=== PATIENT | female | born 1965 | race Caucasian/White ===

== ENCOUNTER → 2018-01-01 | Outpatient (CLI) | payer BC ==
--- NOTE | 2018-01-01 17:27 | RAD ---
Thyroid ultrasound HISTORY: Thyroid fullness. Right thyroid: * 4.8 cm x 1.3 cm x 1.1 cm * Homogeneous echotexture * No evidence of nodule Isthmus: * 3 mm Left thyroid: * 4.5 cm x 1.3 cm x 1.4 cm * Homogeneous echotexture * No evidence of nodule. IMPRESSION: Unremarkable exam Electronically signed by: Umberto Shah MD (01/01/2018 5:23 PM) [id number]
== END | disposition home or self-care (01) ==
LOC: US 13:43
PROVIDERS: ATTEND Physician Assistant Medical
DX: E07.89 Other specified disorders of thyroid (principal)
CPT/HCPCS: 76536

== ENCOUNTER → 2019-03-05 | Outpatient (CLI) | payer BC ==
[2019-03-05 09:39] LABS: ALBUMIN 4.1 g/dL (3.4-5.0); ALBUMIN/GLOBULIN RATIO 1.1 (1.0-1.7); CALCIUM 9.3 mg/dL (8.5-10.1); CREATININE 0.9 mg/dL (0.6-1.0); POTASSIUM 4.4 mmol/L (3.5-5.1); TOTAL BILIRUBIN 0.6 mg/dL (0.2-1.0); TOTAL PROTEIN 7.8 g/dL (6.4-8.2)
[2019-03-05 09:42] LABS: BASO # 0.1 x10^3/uL (0.0-0.2); BASO % 1 % (0-3); EOS # 0.1 x10^3/uL (0.0-0.7); EOS % 2 % (0-3); HEMATOCRIT 42.6 % (36.0-47.0); LYMPH # 1.7 x10^3/uL (1.0-4.8); LYMPH % 28 % (24-48); MEAN CORPUSCULAR HEMOGLOBIN 31 pg (25-35); MEAN CORPUSCULAR HGB CONC 33 g/dL (31-37); MEAN CORPUSCULAR VOLUME 93 fL (79-100); MONO # 0.4 x10^3/uL (0.0-1.1); MONO % 7 % (0-9); NEUT # 3.9 x10^3uL (1.8-7.7); NEUT % 62 % (31-73); PLATELET COUNT 216 x10^3/uL (140-400); RED BLOOD COUNT 4.59 x10^6/uL (3.50-5.40); RED CELL DISTRIBUTION WIDTH 14.1 % (11.5-14.5); WHITE BLOOD COUNT 6.2 x10^3/uL (4.0-11.0)
[2019-03-05 09:51] LABS: BACTERIA,URINE 0 /HPF (0-FEW); BILIRUBIN,URINE NEG (NEG); CLARITY,URINE CLEAR; COLOR,URINE YELLOW; GLUCOSE,URINE NEG (NEG); NITRITE,URINE NEG (NEG); RBC,URINE 0 /HPF (0-2); SQUAMOUS EPITHELIAL CELL,UR OCC /LPF; UROBILINOGEN,URINE 0.2 mg/dL (0.2 mg/dL); WBC,URINE 0 /HPF (0-4)
[2019-03-05 17:32] LABS: FREE T4 0.82 ng/dL (0.76-1.46); THYROID STIM HORMONE (TSH) 3.159 uIU/mL (0.358-3.740)
== END | disposition home or self-care (01) ==
LOC: LAB 08:07
PROVIDERS: ATTEND Physician Assistant Medical
DX: R00.2 Palpitations (principal)
CPT/HCPCS: 36415; 80053; 80061; 81001; 84439; 84443; 84481; 85025

== ENCOUNTER → 2021-07-12 | Outpatient (CLI) | payer BC ==
--- NOTE | 2021-07-12 10:33 | RAD ---
EXAM: ULTRASOUND PELVIS INDICATION: Reason: PMB, DUB . Last menstrual period was one year ago. COMPARISON: None available. TECHNIQUE: Transabdominal grayscale sonography was performed. Color and spectral Doppler evaluation w as also performed FINDINGS: Uterus is anteflexed and measures 6.7 x 4.3 x 2.8 cm. No focal myometrial abnormalities are identifie d. The endometrium measures 2 mm in thickness. No fluid within the endometrial or cervical canal. Cer vical visualization is somewhat limited however no gross abnormalities are identified. The right ovar y measures 2.6 x 1.8 x 1.2 cm and the left measures 2.6 x 1.9 x 1.3 cm. Both ovaries demonstrate norm al vascular flow. No adnexal masses are seen. No free or loculated fluid collections are identified IMPRESSION: No sonographically discernible abnormalities of the pelvic organs. Electronically signed by: Can Geller MD (07/12/2021 10:31 AM) [id number]
== END ==
LOC: US 07:54
PROVIDERS: ATTEND Physician Assistant Medical
DX: N93.8 Other specified abnormal uterine and vaginal bleeding (principal); N95.0 Postmenopausal bleeding; Z78.0 Asymptomatic menopausal state
CPT/HCPCS: 76856

== ENCOUNTER → 2021-08-07 | Outpatient (CLI) | payer BC ==
--- NOTE | 2021-08-07 12:34 | RAD ---
PROCEDURE: US BREAST LTD RT, MG DIGITAL BILAT DIAGNOSTIC MAMMO WITH JED HISTORY: The patient is 55 years old and is seen for Reason: RT BREAST LUMP / Spl. Instructions: / H istory: . COMPARISON: February 03, 2019 and November 14, 2017 TECHNIQUE: CC and MLO views of both breasts were obtained. Images were processed by the [employer] computer-aided detection system. Right breast targeted ultrasound DENSITY: The breast parenchyma is heterogeneously dense. This may lower the sensitivity of mammograph y. FINDINGS: Right mammogram: Right medial retroareolar breast mass measures 1.5 x 1.3 cm. Increased calcification compared to prior. The mass is increased in density compared to 2018. Right ultrasound: Lobulated solid and cystic mass within the right breast 3:00 position 1 cm from the nipple measures 1.4 x 1.1 cm. The mass abuts the cutaneous surface without tract. Left mammogram: No suspicious microcatheter dictation, mass or architectural distortion. IMPRESSION: 1. Solid and cystic mass within the right medial breast adjacent to the nipple. Recommend ultrasound -guided biopsy to further assess. Recommend annual screening mammograms per [place] [employer] guidelines. BI-RADS category 4 Findings suspicious for malignancy Our clinic nurse has been instructed to assist with communicating findings and recommendations to the patient's referring physician and in scheduling follow-up. Patient entered into a reminder system for annual screening mammogram. Electronically signed by: Kingsley Carlos DO (08/07/2021 12:32 PM) [id number]
== END ==
LOC: MAMMO 11:21
PROVIDERS: ATTEND Physician Assistant Medical
DX: N63.14 Unspecified lump in the right breast, lower inner quadrant (principal)
CPT/HCPCS: 76642; 77066; G0279; 77062